=== PATIENT | male | born 1975 | race Caucasian/White ===

== ENCOUNTER → 2017-05-26 | Outpatient (CLI) | payer BC ==
--- NOTE | 2017-05-26 22:47 | EST ---
EXERCISE STRESS AGE:: 41 SEX:: Male HT:: 6'1" WT:: 195 PROTOCOL:: El. STAGE:: 5 DURATION OF EXERCISE:: 11:29 HEART RATE REST:: 89 BLOOD PRESSURE REST:: 114/88 MAXIMUM HEART RATE ACHIEVED:: 186 MAXIMUM BLOOD PRESSURE:: 203/88 85% MPHR:: 154 100% MPHR:: 181 METS:: 13.3 INDICATIONS:: Vertigo/chest pain. CLINICAL INFORMATION:: Baseline EKG revealed a sinus mechanism without significant ST-T changes. Patient walked on a standard El protocol for 11-1/2 minutes, achieving a maximal heart rate of 184 beats per minute, developed fatigue and shortness of breath but did not have any angina or arrhythmia. There were no ST-segment changes to indicate ischemia. This is a negative stress test by EKG criteria. Excellent exercise capacity. Negative stress test by EKG criteria. MMANDREWL / JOSE LN: [id number] /
== END | disposition home or self-care (01) ==
LOC: RADNMMAIN 11:03
PROVIDERS: ATTEND Family Medicine
DX: R07.89 Other chest pain (principal)
CPT/HCPCS: 93017